=== PATIENT | female | born 1980 ===

== ENCOUNTER 2022-02-01 05:13 | Inpatient (IN) | payer BC, MEDICARE, OTHER ==
--- OUTSIDE RECORDS SUMMARY | 2022-02-01 05:17 | XMS REPORT | Continuity of Care Document ---
:1980 Author Organization [facility] t Address [address] [place] [address] Care Team Providers Name Role Phone Radiology Attending Clinician Unavailable RADIOLOGY Attending Clinician Unavailable Vincent Tse Attending Clinician [phone] Clark Johnson MD Attending Clinician Brian JOHNSON Attending Clinician Unavailable G_Jose Alejandro Attending Clinician Unavailable Maritza Admitting Clinician Unavailable Payers Payer Name Policy Type Policy Number Effective Date Expiration Date S ource ADMINISTRATIVE [id number] 2021 [employer] 00:00:00 ADMINISTRATIVE [id number] CONCEPTS Problems Condition Condition Condition Status Onset Resolution Last Treating Co mments Source Name Details Category Date Date Treatment Clinician Date No known No known Disease Unive rs active active ity of problems problems [facility] Allergies, Adverse Reactions, Alerts Allergy Allergy Status Severity Reaction(s) Onset Inactive Treating Comm ents Source Name Type Date Date Clinician NO KNOWN Drug Active Univers ALLERGIE Class ity of S [facility] Social History Social Habit Start Date Stop Date Quantity Comments Source Exposure to Not sure [facility] SARS-CoV-2 (event) Medica l Branch Sex Assigned At [birth year] [facility] 00:00:00 00:00:00 [facility] Smoking Status Start Date Stop Date Source Never Smoker [facility] Unknown if ever smoked [facility] Medications Ordered Filled Start Stop Current Ordering Indication Dosage Frequency Signature Comments Components Source Medication Medication Date Date Medication? Clinician (SIG) Name Name [facility] 2022020- No 40meq 40 mEq, Univers (KLOR-CON 03-15 Oral, ity of M20) tablet 10:45: 09:48 [place] 1 [place]Eq 00 :00 dose, [facility] 03/15/21 at [place] 0545, Routine ondansetron 2020- No 4mg 4 mg, Slow Univers (ZOFRAN 03-15 IV Push, ity of (PF)) 10:00: 09:01 ONCE, 1 [place] injection 4 00 :00 dose, [facility] mg 03/15/21 at [place] 0500, PHIL FENTanyl PF 2020- No 50ug 50 mcg, Un [place] (SUBLIMAZE 03-15 Slow IV ity o f (PF)) 10:00: 09:01 Push, [place] injection 00 :00 ONCE, 1 Medical 50 mcg dose, [facility] 03/15/21 at 0500, Routine maalox:diph No 15mL 15 mL, Uni vers enhydrAMINE 03-15 Oral, ity of :lidocaine 09:30: 08:23 ONCE, 1 [place] as 2 % viscous 00 :00 dose, [facility] 1:1:1 03/15/21 at [place] (FIRST-MOUT 0430, [facility]) Routine oral suspension 15 mL dicyclomine Yes [id number] 20mg Take 1 Univers 20 mg -06 tablet by ity of tablet 00:00: mouth [place] 00 every 6 Medical (six) Branch hours as needed for Abdominal pain. ondansetron Yes [id number] 4mg Take 1 Univers (ZOFRAN) 4 -06 tablet by ity of mg tablet 00:00: mouth [place] 00 every 8 Medical (eight) Branch hours as needed for Nausea and Vomiting (N/V). pantoprazol 0 Yes [id number] 40mg Take 1 Univers e 6-06 tablet by ity of (PROTONIX) 00:00: mouth [place] 40 mg EC 00 daily. Medical tablet [place] dicyclomine Yes [id number] 20mg Take 1 Univers 20 mg 6-06 tablet by ity of tablet 00:00: mouth [place] 00 every 6 Medical (six) Branch hours as needed for Abdominal pain. ondansetron Yes [id number] 4mg Take 1 Univers (ZOFRAN) 4 6-06 tablet by ity of mg tablet 00:00: mouth [place] 00 every 8 Medical (eight) Branch hours as needed for Nausea and Vomiting (N/V). pantoprazol Yes [id number] 40mg Take 1 Univers e 6-06 tablet by ity of (PROTONIX) 00:00: mouth [place] 40 mg EC 00 daily. Medical tablet Branch Emergen-C Emergen-C No Emergen-C [facility] Multi Multi No Multi [place] Vitamin Vitamin [facility] Vital Signs Vital Name Observation Time Observation Value Comments Source Systolic blood 2021-03-15 09:00:00 114 mm[Hg] Univer sity of [facility] Diastolic blood 2021-03-15 09:00:00 87 mm[Hg] [facility] Heart rate 2021-03-15 09:00:00 70 /min [facility] Respiratory rate 2021-03-15 09:00:00 18 /min [facility] saturation in 2021-03-15 09:00:00 98 /min University of Arterial blood by [place] [employer] [employer] Pulse oximetry Branch Body height 2021-03-15 08:17:00 157.5 cm [facility] Body weight 2021-03-15 08:17:00 79.379 kg [facility] BMI 2021-03-15 08:17:00 32.01 kg/m2 [facility] Systolic blood 2021-03-15 09:00:00 114 mm[Hg] Univer sity of [facility] Diastolic blood 2021-03-15 09:00:00 87 mm[Hg] Unive rsity of [facility] Heart rate 2021-03-15 09:00:00 70 /min [facility] Respiratory rate 2021-03-15 09:00:00 18 /min [facility] Oxygen saturation in 2021-03-15 09:00:00 98 /min University of Arterial blood by [place] [employer] [place] Pulse oximetry Branch Body height 2021-03-15 08:17:00 157.5 cm [facility] Body weight 2021-03-15 08:17:00 79.379 kg [facility] BMI 2021-03-15 08:17:00 32.01 kg/m2 [facility] BP Diastolic 2020-07-18 00:00:00 91 mm[Hg] [facility] BP Systolic 2020-07-18 00:00:00 128 mm[Hg] [facility] Body Weight 2020-07-18 00:00:00 180 [facility]lb_av[facility] Procedures Procedure Date / Time Performed Performing Clinician Sour e US ABDOMEN LIMITED 2021-05-04 20:03:12 Requisition, [facility] LIPASE 2021-03-15 08:33:00 Clark Johnson [facility] COMP. METABOLIC PANEL 2021-03-15 08:33:00 Clark Johnson [facility] ([id number]) [facility] CBC WITH DIFF 2021-03-15 08:33:00 Clark Johnson [facility] URINALYSIS 2021-03-15 08:33:00 Clark Johnson [facility] POCT TEST 2021-03-15 08:20:00 Clark Johnson [facility] CONSENT/REFUSAL FOR 2021-03-15 08:05:27 Doctor Unassigned, No Un [facility] DIAGNOSIS AND Name [facility] Branch TREATMENT MAMMO, screening, 2020-07-18 00:00:00 [facility] Operative Procedure on [facility] Plan of Care Planned Activity Planned Date Details Comments Source Diagnostic Test 2020-07-18 CBC w/ auto diff [facility] Pending 00:00:00 [code = CBC w/ Group auto diff] Diagnostic Test 2020-07-18 CMP, serum or [facility] Pending 00:00:00 plasma [code = Group CMP, serum or plasma] Diagnostic Test 2020-07-18 lipid panel, serum [facility] Pending 00:00:00 [code = lipid Group panel, serum] Diagnostic Test 2020-07-18 HBsAg (hepatitis B [facility] Pending 00:00:00 surface Ag), serum Group [code = HBsAg (hepatitis B surface Ag), serum] Diagnostic Test 2020-07-18 HIV (1+2) Ab [facility] Pending 00:00:00 screen, serum Group [code = HIV (1+2) Ab screen, serum] Diagnostic Test 2020-07-18 RPR (rapid plasma [facility] Pending 00:00:00 reagin), serum Group [code = RPR (rapid plasma reagin), serum] Diagnostic Test 2020-07-18 TSH + free T4, [facility] Pending 00:00:00 serum [code = TSH Group + free T4, serum] Diagnostic Test 2020-07-18 pap, LB + HPV [facility] Pending 00:00:00 [code = pap, LB + Group HPV] Encounters Start End Encounter Admission Attending Care Care Encounter Source Date/Time Date/Time Type Type Clinicians Facility Department ID 2021-08-10 Emergency [facility] [id number] [facility] 11:31:10 ity [facility] 2021-05-04 2021-05-04 Hospital Radiology [facility] [id number] 14:15:00 23:59:00 Encounter [place] [id number] [place] [id number] [place] [id number] [facility] 2021-05-04 2021-05-04 Hospital Radiology [facility] [id number] [facility] 14:15:00 23:59:00 Encounter [place] [id number] 4.2.7.2.686 [facility] [id number] [address] 2021-05-04 2021-05-04 Outpatient R RADIOLOGY [facility] [id number] Univers [facility]-04[facility] 2021-04-[address] Tse CHTAYLOROCS [id number] 13:00:00 13:00:00 Vincent [id number] 2021-03-15 2021-03-15 Emergency [facility] [id number] 03:08:00 04:52:00 [facility] [place] [id number] [place] 4.2.7.2.686 [place] [id number] [facility] 2021-03-15 2021-03-15 Emergency [facility] [id number] [facility] 03:08:00 04:52:00 [facility] [id number] ity [facility] 4.2.7.2.686 [facility] [id number] [place] [address] Branch 2021-03-15 2021-03-15 Emergency X [facility] ERT [id number] Univers 03:08:00 03:08:00 [facility] 2020-08-27 2020-08-27 Outpatient G_Pappas MMG MM [id number] [place] 02:27:00 02:27:00 1118 [facility] Group 2020-07-31 2020-07-31 Outpatient G_Pappas MMG MM [id number] [facility] 04:58:00 04:58:00 1022 Medical Group 2020-07-23 2020-07-23 Outpatient G_Pappas MMG MMG [id number] [place] 10:41:00 10:41:00 1014 Medical Group 2020-07-20 2020-07-20 Outpatient G_Pappas MMG MMG [id number] [place] 12:17:00 12:17:00 1011 Medical Group 2020-07-18 2020-07-18 Outpatient G_Pappas MMG MMG [id number] [place] 10:02:00 10:02:00 1009 Medical Group 2020-07-18 2020-07-18 Maria Ines [facility] [place] - [id number] M atagor 00:00:00 00:00:00 Devang Magana, Medical Medica daniele MCDONALD: [address] [facility] [address], [place] [address] , Ph. [phone] 2020-07-16 2020-07-16 Outpatient G_Pappas MMG MMG [id number] [place] 10:37:00 10:37:00 1007 Medical Group 2020-05-20 2020-05-20 Outpatient G_Pappas MMG MMG [id number] [place] 05:01:00 05:01:00 0811 Medical Group Results Test Description Test Time Test Comments Results Result [facility] e Comments US ABDOMEN 2021-04-2 Cholelithiasis. No Unive rsity of LIMITED 6 acute cholecystitis. [facility] s Medical 20:38:45 Beatrice Barakat Branch MD., have reviewed this study and agree with the abovereport.RIGHT UPPER QUADRANT ULTRASOUND HISTORY: abdominal pain Faxed order COMPARISON: None. FINDINGS: LIVER: Normal in size (14.2 cm). Normal echo-texture. No focal hepaticlesion. ?Normal hepatopetal ?flow within the main portal vein. GALLBLADDER: Cholelithiasis. No pericholecystic fluid or gallbladderdistentio n. No sonographic Carrington's sign. The common bile duct measures 3mm. PANCREAS: The visualized portions of pancreatic head, neck, and body appearunremarkable. RIGHT KIDNEY: The visualized portion of the right kidney is unremarkable. [facility], Radiant Results Inft User - 05/04/2021 3:39 PM CDT RIGHT UPPER QUADRANT ULTRASOUND HISTORY: abdominal pain Faxed orderCOMPARISON: None. FINDINGS: LIVER: Normal in size (14.2 cm). Normal echo-texture. No focal hepaticlesion. Normal hepatopetal flow within the main portal vein. GALLBLADDER: Cholelithiasis. No pericholecystic fluid or gallbladderdistentio n. No sonographic Carrington's sign. The common bile duct measures 3mm.PANCREAS: The visualized portions of pancreatic head, neck, and body appearunremarkable.R IGHT KIDNEY: The visualized portion of the right kidney is unremarkable.IMPRESS ION Cholelithiasis. No acute cholecystitis. Beatrice Barakat MD., have reviewed this study and agree with the abovereport. Complete Metabolic Panel 2021-03-15 09:17:48 Test Item Value Reference Range Interpretation Comme nts NA (test code = 3633519346) 140 mmol/L 135-145 K (test code = 9062854717) 3.2 mmol/L 3.5-5.0 L CL (test code = 3768233331) 107 mmol/L 98-108 CO2 TOTAL (test code = 5080033491) 24 mmol/L 23-31 AGAP (test code = 4979197966) 2-16 BUN (test code = 1540007952) 12 mg/dL 7-23 GLUCOSE (test code = 1631649826) 126 mg/dL 70-110 H CREATININE (test code = 0.64 mg/dL 0.50-1.04 3193737306) TOTAL BILI (test code = 0.3 mg/dL 0.1-1.4 8237339162) CALCIUM (test code = 3347610882) 9.1 mg/dL 8.6-10.6 T PROTEIN (test code = 5194101239) 7.4 g/dL 6.3-8.2 ALBUMIN (test code = 8448216992) 4.1 g/dL 3.5-5.0 ALK PHOS (test code = 7477016396) 58 U/L 34-122 ALTv (test code = 1742-6) 20 U/L 5-35 AST(SGOT) (test code = 3544947139) 82 U/L 13-40 H eGFR (test code = 1185222968) mL/min/1.73m2 ALICIA (test code = ALICIA) Association of Glomerular Filtration Rate (GFR) and Staging of Kidney Disease* + +-------- + ------+| GFR (mL/min/1.73 m2) ?| With Kidney Damage ?| ?Without Kidney Damage+ +-- + +| ?>90 ?| ?Stage one ?| ? Normal ?+ +------- + -------+| ?60-89 ?| ?Stage two ?| ? Decreased GFR ? + +-------- + ------+| ?30-59 ?| ?Stage three ?| ? Stage three ? + +-------- + ------+| ?15-29 ?| ?Stage four ? | ? Stage four ?+ +------- + -------+| ?<15 (or dialysis) ? ?| ?Stage five ? | ? Stage five ?+ +------- + -------+ *Each stage assumes the associated GFR level has been in effect for at least three months. ?Stages 1 to 5, with or without kidney disease, indicate chronic kidney disease. Notes: Determination of stages one and two (with eGFR >59mL/min/1.73 m2) requires estimation of kidney damage for at least three months as defined by structural or functional abnormalities of the kidney, manifested by either:Pathological abnormalities or Markers of kidney damage (including abnormalities in the composition of the blood or urine or abnormalities in imaging tests). Lab Interpretation (test code = Abnormal 76479-2) [facility] [id number] 09:17:27 Test Item Value Reference Range Interpretation Comments LIPASE (test code = 2063524717) 83 U/L 0-220 Lab Interpretation (test code = Normal 46136-8) [facility]2021-[facility]-06 08:56:33 Test Item Value Reference Range Interpretation Comments APPEARANCE (test code = Clear Clear 5682771884) COLOR (test code = Yellow Yellow 0895155218) PH (test code = 4.8-8.0 2452344280) SP GRAVITY (test code = 1.003-1.030 8796587861) GLU U QUAL (test code = Normal Normal 9427452844) BLOOD (test code = Negative Negative 1112496420) KETONES (test code = Negative Negative 4538606590) PROTEIN (test code = Negative Negative 2887-8) UROBILIN (test code = Normal Normal 5876785555) BILIRUBIN (test code = Negative Negative 8001483245) NITRITE (test code = Negative Negative 3334097649) LEUK MARGIE (test code = Negative Negative 4030603429) RBC/HPF (test code = See_Comment [Autom ated message] 7133318908) The system [employer] generated this result transmitted ref erence range: 0 - 3 HP F. The reference range was not used to int erpret this result as normal/abnormal . WBC/HPF (test code = See_Comment [Autom ated message] 9607656106) The system [employer] generated this result transmitted ref erence range: 0 - 5 HP F. The reference range was not used to int erpret this result as normal/abnormal . BACTERIA (test code = Few Negative A 1324539760) MUCOUS (test code = Slight Negative LPF A 4724132708) SQ EPITH (test code = HPF 9418243599) Lab Interpretation (test Abnormal code = 69621-0) [facility] with [id number] 08:45:08 Test Item Value Reference Range Interpretation Comments WBC (test code = See_Comment [Automated 6690-2) message] The sy stem which generated this result transmitted reference range : 4.30 - 11.10 10*3/?L. The reference range was not used to interpret this result as normal/abnormal . RBC (test code = See_Comment [Automated 789-8) message] The sy stem which generated this result transmitted reference range : 3.93 - 5.25 10*6/?L. The reference range was not used to interpret this result as normal/abnormal . HGB (test code = 12.1 g/dL 11.6-15.0 718-7) HCT (test code = 38.3 % 35.7-45.2 4544-3) MCV (test code = 88.2 fL 80.6-95.5 787-2) MCH (test code = 27.9 pg 25.9-32.8 785-6) MCHC (test code = 31.6 g/dL 31.6-35.1 786-4) RDW-SD (test code = 39.8 fL 39.0-49.9 67191-6) RDW-CV (test code = 12.3 % 12.0-15.5 788-0) PLT (test code = See_Comment [Automated 777-3) message] The sy stem which generated this result transmitted reference range : 166 - 358 10*3/ ?L. The reference r letitia was not used to interpret this result as normal/abnormal . MPV (test code = 10.3 fL 9.5-12.9 17191-0) NRBC/100 WBC (test See_Comment [Automat ed code = 3431182324) message] The system which generated this result transmitted reference range : 0.0 - 10.0 /100 WBCs. The refer ence range was not u sed to interpret th is result as normal/abnormal . NRBC x10^3 (test code <0.01 See_Comment [Auto mated = 2716755435) message] The s ystem which generated this result transmitted reference range : 10*3/?L. The reference range was not used to interpret this result as normal/abnormal . GRAN MAT (NEUT) % 75.8 % (test code = 770-8) IMM GRAN % (test code 0.40 % = 8066035802) LYMPH % (test code = 17.8 % 736-9) MONO % (test code = 5.3 % 5905-5) EOS % (test code = 0.4 % 713-8) BASO % (test code = 0.3 % 706-2) GRAN MAT x10^3(ANC) 7.55 10*3/uL 1.88-7.09 H (test code = 7135502689) IMM GRAN x10^3 (test 0.04 10*3/uL 0.00-0.06 code = 3850622806) LYMPH x10^3 (test code 1.77 10*3/uL 1.32-3.29 = 731-0) MONO x10^3 (test code 0.53 10*3/uL 0.33-0.92 = 742-7) EOS x10^3 (test code = 0.04 10*3/uL 0.03-0.39 711-2) BASO x10^3 (test code 0.03 10*3/uL 0.01-0.07 = 704-7) Lab Interpretation Abnormal (test code = 66077-8) [facility] [id number] 08:20:00 Test Item Value Reference Range Interpretation Comments POCT PREG (test code = 1605) negative On board controls acceptable with present C Line (test code = 3574) POCT PREG LOT # (test code = 3575) [id number] POCT PREG TEST DATE (test 09/08/2022 code = 3576) Lab Interpretation (test code = Normal 37600-7) [facility]"
[2022-02-01 06:22] LABS: Absolute Lymphocytes (CBC) 1.1 K/uL (0.7-4.9); Lymphocytes % 21.5 % (15.3-44.8); MPV 8.9 fL (7.6-11.3); RBC Red Blood Cell Count 4.37 M/uL (3.86-4.86)
[2022-02-01 06:40] LABS: Albumin 3.6 g/dL (3.4-5.0); Bilirubin Total 1.5 mg/dL (0.2-1.0); Potassium 3.6 mmol/L (3.5-5.1); Protein, Total 7.7 g/dL (6.4-8.2)
[2022-02-01] MEDS ORDERED: ONDANSETRON 4 MG/2 ML VIAL ONE (07:18)
[2022-02-01] MEDS ORDERED: MORPHINE 4 MG/ML SYR ONE (07:18)
[2022-02-01] MEDS ORDERED: NA CHLORIDE 0.9% 1,000 ML ONE (07:18)
[2022-02-01] MEDS ORDERED: FAMOTIDINE 20 MG/2 ML VIAL IV ONE (07:18)
--- NOTE | 2022-02-01 07:42 | RAD REPORT ---
EXAM DESCRIPTION: CT - Abdomen Pelvis W Contrast - 02/01/2022 7:32 am CLINICAL HISTORY: Epigastric pain COMPARISON: Abdomen Exam Limited dated 02/01/2022 TECHNIQUE: Biphasic, helical CT imaging of the abdomen and pelvis was performed following 100 ml non -ionic IV contrast. No oral contrast administered. All CT scans are performed using dose optimization technique as appropriate and may include automated exposure control or mA/KV adjustment according to patient size. FINDINGS: No suspicious findings in the lung bases. The liver, spleen, and pancreas show no suspicious focal findings. Liver attenuation is borderline to mildly fatty infiltrated. Gallbladder is not dilated. [place] are not clearly thickened or edematous b y CT criteria. Same-day ultrasound showed presence of gallstones. There is mild prominence of the int rahepatic and extrahepatic biliary tree. Diameter is upper normal to slightly enlarged at 8-9 mm. Att enuation of the common bile duct lumen suggests the presence of duct stones. CT sensitivity is limite d. Symmetric renal function is seen with no hydronephrosis or suspicious renal mass. No pyelonephritis o r acute parenchymal process. No bladder abnormalities. No adrenal abnormalities. No dilated bowel loops or bowel wall thickening. No appendicitis. There is a mild congestion to the f at round the central mesenteric vasculature. This is a nonspecific finding. A few small sub centimete r mesenteric lymph nodes present. No free air or pneumatosis. Trace amount of free fluid in the cul d e sac is physiologic in quantity. Uterus and ovaries show no suspicious findings. There does appear t o be an involuting left ovarian cyst approximately 2 cm in size. No hernia, mass or bulky lymphadeno trev. No suspicious bony findings. IMPRESSION: Biliary tree appears mildly prominent and there are finding suggestive of choledocholith iasis. Gallbladder is not dilated. [place] do not appear thickened or edematous on CT criteria. Separately rep orted ultrasound identified gallstones. Nonspecific congestion of the central mesenteric fat with a few small nonspecific mesenteric lymph no [place]. Concurrent enteritis is possible. Involuting left ovarian cyst. 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
--- NOTE | 2022-02-01 07:44 | RAD REPORT ---
EXAM DESCRIPTION: US - Abdomen Exam Limited - 02/01/2022 6:23 am CLINICAL HISTORY: RUQ pain COMPARISON: No remote comparison FINDINGS: Multiple mobile subcentimeter gallstones are present within the lumen. Most are clustered in the fundus. No wall thickening or pericholecystic fluid seen. There is no wall thickening or peric holecystic fluid. No duct stone is identifiable. Diameter of the common bile duct is 7-8 mm. Portions of the extrahepat ic biliary tree are obscured by bowel. IMPRESSION: Multi stone cholelithiasis without additional sonographic findings for acute cholecystit is. Extrahepatic biliary tree is upper normal to slightly enlarged at 7-8 mm. Duct is partially obscured by a bowel. No duct stones could be confirmed.
--- NOTE | 2022-02-01 08:15 | ER ---
Nurse's Notes [facility] Name: Fany Duron Age: 41 yrs Sex: Female : 1980 Arrival Date: 02/01/2022 Time: 05:19 Bed 8 Private MD: Diagnosis: Other cholelithiasis with obstruction;Choledocholithiasis Presentation: 02/01 05:27 Chief complaint: Patient states: was seen Tuesday at [facility] and was confirmed to have lg3 gallstones and was told to follow up with Dr. Pereira for surgery. pain is increasing and becoming unbearable at this point. Coronavirus screen: Client denies travel out of the [place] in the last 14 days. At this time, the client does not indicate any symptoms associated with coronavirus-19. Ebola Screen: No symptoms or risks identified at this time. Initial Sepsis Screen: Does the patient meet any 2 criteria? No. Patient's initial sepsis screen is negative. Does the patient have a suspected source of infection? No. Patient's initial sepsis screen is negative. Risk Assessment: Do you want to hurt yourself or someone else? Patient reports no desire to harm self or others. Onset of symptoms was January 30, 2022. 05:27 Method Of Arrival: Ambulatory lg3 05:27 Acuity: TOBIAS 3 lg3 Triage Assessment: 05:31 General: Appears in no apparent distress. uncomfortable, Behavior is calm, cooperative. lg3 Pain: Complains of pain in epigastric area Pain radiates to back. EENT: No deficits noted. No signs and/or symptoms were reported regarding the EENT system. Neuro: No deficits noted. Level of Consciousness is awake, alert, obeys commands, Oriented to person, place, time, situation. Cardiovascular: No deficits noted. Capillary refill < 3 seconds Clubbing of nail beds is absent JVD is absent Patient's skin is warm and dry. Respiratory: No deficits noted. Airway is patent Trachea midline Respiratory effort is even, unlabored, Respiratory pattern is regular, symmetrical. GI: Reports upper abdominal pain, epigastric pain, indigestion, intolerance of fluids, intolerance of food, nausea. : No deficits noted. No signs and/or symptoms were reported regarding the genitourinary system. Derm: No deficits noted. No signs and/or symptoms reported regarding the dermatologic system. Skin is intact, is healthy with good turgor, Skin is dry, Skin is pink, warm \\T\\ dry. Musculoskeletal: No deficits noted. No signs and/or symptoms reported regarding the musculoskeletal system. Circulation, motion, and sensation intact. Range of motion: intact in all extremities. 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 - Social history:: Smoking status: Patient/guardian denies using tobacco, the patient reports quitting approximately 2 years ago, Patient/guardian denies using alcohol. - Family history:: not pertinent. - Hospitalizations: : No recent hospitalization is reported. Screenin:01 Abuse screen: Denies threats or abuse. Nutritional screening: No deficits noted. ll3 Tuberculosis screening: No symptoms or risk factors identified. 07:30 Fall Risk None identified. jg9 Assessment: 05:45 General: Appears uncomfortable, Behavior is calm, cooperative. Pain: Complains of pain ll3 in back and abdomen and epigastric area Pain radiates to back Pain currently is 9 out of 10 on a pain scale. Pain began 2-3 days ago. Is continuous. Neuro: Level of Consciousness is awake, alert, obeys commands, Oriented to person, place, time, situation. Cardiovascular: Patient's skin is warm and dry. Respiratory: Respiratory effort is even, unlabored, Respiratory pattern is regular, symmetrical. GI: Abdomen is round non-distended, Bowel sounds present X 4 quads. Abd is soft and non tender X 4 quads. Reports upper abdominal pain. Derm: Skin is pink, warm \\T\\ dry. 07:15 Reassessment: No changes from previously documented assessment. Patient and/or family jg9 updated on plan of care and expected duration. Pain level reassessed. Patient is alert, oriented x 3, equal unlabored respirations, skin warm/dry/pink. Patient states symptoms have not improved. 08:56 Reassessment: Patient appears in no apparent distress at this time. Patient is alert, jg9 oriented x 3, equal unlabored respirations, skin warm/dry/pink. updated on plan of care. Vital Signs: 05:27 BP 125 / 97; Pulse 63; Resp 17 S; Temp 97.6(O); Pulse Ox 100% on R/A; Weight 81.65 kg lg3 (R); Height 5 ft. 2 in. (157.48 cm) (R); Pain 8/10; 07:17 BP 123 / 93; Pulse 71; Resp 17 S; Pulse Ox 95% on R/A; Pain 8/10; jg9 08:30 BP 120 / 94; Pulse 70; Resp 17 S; Pulse Ox 97% on R/A; jg9 09:30 BP 105 / 80; Pulse 68; Resp 17; Pulse Ox 95% on R/A; jg9 11:00 BP 96 / 70; Pulse 58; Resp 14 S; Pulse Ox 97% on R/A; jg9 12:00 BP 106 / 69; Pulse 51; Resp 14 S; Pulse Ox 97% on R/A; jg9 12:30 BP 112 / 73; Pulse 53; Resp 14 S; Pulse Ox 95% on R/A; Pain 8/10; jg9 05:27 Body Mass Index 32.92 (81.65 kg, 157.48 cm) lg3 ED Course: 05:19 Patient arrived in ED. ag3 05:21 Farhat Camarillo MD is Attending Physician. kdr 05:31 Triage completed. lg3 05:31 Arm band placed on right wrist. lg3 06:25 US Abdomen Limited In Process Unspecified. EDMS 06:41 Notified ED physician of a critical lab result(s). AST 639; ALT 342. lp1 07:01 Patient has correct armband on for positive identification. Bed in low position. Call ll3 light in reach. Side rails up X 1. 07:10 Awa Churchill, SARTHAK is Primary Nurse. lp1 07:10 Inserted saline lock: 22 gauge in left antecubital area, using aseptic technique. lp1 07:10 Accessed peripheral vein via ultrasound, utilizing dynamic ultrasound technique using lp1 ,sterile technique, per hospital protocol. Clean \\T\\ dry. Good blood return. Flushes easily. 22g IV to L AC. 07:14 Attending Physician role handed off by Farhat Camarillo MD rn 07:14 Kevyn Vázquez MD is Attending Physician. rn 07:15 No apparent distress. Resting quietly. ED physician to see patient. jg9 07:28 Katarina Blount, RN is Primary Nurse. jg9 07:34 CT Abd/Pelvis - IV Contrast Only In Process Unspecified. EDMS 08:13 Jennifer Joshi MD is Hospitalizing Provider. rn 08:52 COVID-19 SARS RT PCR (Document "Date of Onset" if Symptomatic) Sent. jg9 08:58 No apparent distress. Resting quietly. Pt visited by significant other. jg9 12:56 Patient requests pain medication. Dr. Joshi called by this nurse to get orders for jg9 pain medication. Administered Medications: 07:25 Drug: NS 0.9% 1000 ml Route: IV; Rate: 1 bolus; Site: left antecubital; jg9 08:26 Follow up: IV Status: Completed infusion; IV Intake: 1000ml jg9 07:26 Drug: Zofran (Ondansetron) 4 mg Route: IVP; Site: left antecubital; jg9 07:57 Follow up: Response: No adverse reaction; Nausea is decreased jg9 07:27 Drug: morphine 4 mg Route: IVP; Site: left antecubital; jg9 07:57 Follow up: Response: No adverse reaction; Pain is decreased jg9 07:27 Drug: Pepcid (famotidine) 20 mg Route: IVP; Site: left antecubital; jg9 07:57 Follow up: Response: No adverse reaction jg9 08:47 Drug: Zosyn (piperacillin-tazobactam) 3.375 grams Route: IVPB; Infused Over: 60 mins; jg9 Site: left antecubital; 09:45 Follow up: IV Status: Completed infusion; IV Intake: 100ml jg9 Intake: 08:26 IV: 1000ml; Total: 1000ml. jg9 09:45 IV: 100ml; Total: 1100ml. jg9 Outcome: 08:14 Decision to Hospitalize by Provider. rn 17:00 Patient left the ED. mh5 Signatures: Dispatcher [employer] EDSD RitFarhat nicole MD MD kdr Nieto, Roman, MD MD rn Pena, Laura, RN RN lp1 Cleo Pereira 5 Pa, Darcy 3 Shahla Edge RN RN lg3 Pepe Gomez RN RN ll3 Katarina Blount RN RN jg9 Corrections: (The following items were deleted from the chart) 12:21 05:31 Social history: Smoking status: Patient denies any tobacco usage or history of. jg9 Patient/guardian denies using alcohol, lg3
--- NOTE | 2022-02-01 08:15 | EDPHYS ---
Physician Documentation [facility] Name: Fany Duron Age: 41 yrs Sex: Female : 1980 Arrival Date: 02/01/2022 Time: 05:19 Bed 8 Private MD: ED Physician Kevyn Vázquez HPI: 02/01 07:41 This 41 yrs old Female presents to ER via Ambulatory with complaints of Abdominal Pain. rn 07:41 Pt reports recent visit to [place], referred here if symptoms dont improve, no fever, no rn vomiting, + persistent pain in RUQ. . Onset: The symptoms/episode began/occurred "months ago". Severity of symptoms: At their worst the symptoms were moderate in the emergency department the symptoms are unchanged. The patient has experienced similar episodes in the past. The patient has been recently seen by a physician:. 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 - Social history:: Smoking status: Patient/guardian denies using tobacco, the patient reports quitting approximately 2 years ago, Patient/guardian denies using alcohol. - Family history:: not pertinent. - Hospitalizations: : No recent hospitalization is reported. ROS: 07:41 Constitutional: Negative for fever, chills, and weight loss, Eyes: Negative for injury, rn pain, redness, and discharge, Neck: Negative for injury, pain, and swelling, Cardiovascular: Negative for chest pain, palpitations, and edema, Respiratory: Negative for shortness of breath, cough, wheezing, and pleuritic chest pain, Abdomen/GI: + RUQ abd pain Back: Negative for injury and pain, : Negative for injury, bleeding, discharge, and swelling, MS/Extremity: Negative for injury and deformity, Skin: Negative for injury, rash, and discoloration, Neuro: Negative for headache, weakness, numbness, tingling, and seizure. Exam: 07:41 Constitutional: This is a well developed, well nourished patient who is awake, alert, rn and in no acute distress. Head/Face: Normocephalic, atraumatic. Eyes: Periorbital areas with no swelling, redness, or edema. Cardiovascular: Regular rate and rhythm. No pulse deficits. Respiratory: No increased work of breathing, no retractions or nasal flaring. Abdomen/GI: + RUQ tenderness, neg ogden, + guarding Skin: Warm, dry MS/ Extremity: Pulses equal, no cyanosis. Neuro: Awake and alert, GCS 15 Vital Signs: 05:27 BP 125 / 97; Pulse 63; Resp 17 S; Temp 97.6(O); Pulse Ox 100% on R/A; Weight 81.65 kg lg3 (R); Height 5 ft. 2 in. (157.48 cm) (R); Pain 8/10; 07:17 BP 123 / 93; Pulse 71; Resp 17 S; Pulse Ox 95% on R/A; Pain 8/10; jg9 08:30 BP 120 / 94; Pulse 70; Resp 17 S; Pulse Ox 97% on R/A; jg9 09:30 BP 105 / 80; Pulse 68; Resp 17; Pulse Ox 95% on R/A; jg9 11:00 BP 96 / 70; Pulse 58; Resp 14 S; Pulse Ox 97% on R/A; jg9 12:00 BP 106 / 69; Pulse 51; Resp 14 S; Pulse Ox 97% on R/A; jg9 12:30 BP 112 / 73; Pulse 53; Resp 14 S; Pulse Ox 95% on R/A; Pain 8/10; jg9 05:27 Body Mass Index 32.92 (81.65 kg, 157.48 cm) lg3 MDM: 07:14 Patient medically screened. rn 08:12 Differential Diagnosis cholecystitis, choledocholithiasis, cholelithiasis. Data rn reviewed: vital signs, nurses notes, lab test result(s), radiologic studies, CT scan, and as a result, I will admit patient. Counseling: I had a detailed discussion with the patient and/or guardian regarding: the historical points, exam findings, and any diagnostic results supporting the discharge/admit diagnosis, lab results, radiology results, the need for further work-up and treatment in the hospital. Response to treatment: the patient's symptoms have mildly improved after treatment, and as a result, I will admit patient. Admission orders: after a detailed discussion of the patient's condition and case, the admit orders are written by me. ED course: Consulted with Dr. Pereira, will see patient, recommends admission to hospitalist service with MRCP and GI consult. . 08:36 ED course: Called Dr. Joshi, no answer, left message.. rn 02/01 05:22 Order name: CBC with Diff; Complete Time: 07:41 kdr 02/01 05:22 Order name: CMP; Complete Time: 07:41 kdr 02/01 05:22 Order name: Lipase; Complete Time: 07:41 kdr 02/01 08:44 Order name: SARS-COV-2 RT PCR (Document "Date of Onset" if Symptomatic) iw 02/01 08:45 Order name: COVID-19 SARS RT PCR (Document "Date of Onset" if Symptomatic) jd3 02/01 08:47 Order name: Urine Dipstick-Ancillary [facility] 02/01 05:51 Order name: CT Abd/Pelvis - IV Contrast Only; Complete Time: 07:45 kdr 02/01 05:51 Order name: US Abdomen Limited; Complete Time: 07:45 kdr 02/01 08:49 Order name: Urine --Ancillary (enter results) bd 02/01 13:03 Order name: CBC with Automated Diff [facility] 02/01 13:03 Order name: CBC with Automated Diff [facility] 02/01 13:03 Order name: Comprehensive Metabolic Panel [facility] 02/01 13:03 Order name: Comprehensive Metabolic Panel [facility] 02/01 05:22 Order name: IV Saline Lock; Complete Time: 07:10 [facility] 02/01 05:22 Order name: Labs collected and sent; Complete Time: 07:12 kdr 02/01 08:42 Order name: Urine Dipstick-Ancillary (obtain specimen); Complete Time: 08:47 rn 02/01 08:42 Order name: Urine Test (obtain specimen); Complete Time: 08:47 rn 02/01 13:03 Order name: CONS Physician Consult EDAZ 02/01 13:03 Order name: NPO EDAZ 02/01 13:05 Order name: CONS Physician Consult EDAZ Administered Medications: 07:25 Drug: NS 0.9% 1000 ml Route: IV; Rate: 1 bolus; Site: left antecubital; jg9 08:26 Follow up: IV Status: Completed infusion; IV Intake: 1000ml jg9 07:26 Drug: Zofran (Ondansetron) 4 mg Route: IVP; Site: left antecubital; jg9 07:57 Follow up: Response: No adverse reaction; Nausea is decreased jg9 07:27 Drug: morphine 4 mg Route: IVP; Site: left antecubital; jg9 07:57 Follow up: Response: No adverse reaction; Pain is decreased jg9 07:27 Drug: Pepcid (famotidine) 20 mg Route: IVP; Site: left antecubital; jg9 07:57 Follow up: Response: No adverse reaction jg9 08:47 Drug: Zosyn (piperacillin-tazobactam) 3.375 grams Route: IVPB; Infused Over: 60 mins; jg9 Site: left antecubital; 09:45 Follow up: IV Status: Completed infusion; IV Intake: 100ml jg9 Disposition Summary: 02/01/22 08:14 Hospitalization Ordered Hospitalization Status: Inpatient Admission rn Provider: Jennifer Joshi rn Condition: Stable rn Problem: an ongoing problem rn Symptoms: have improved rn Bed/Room Type: Standard rn Location: Telemetry/MedSurg (Inpatient)(02/01/22 15:23) bd Room Assignment: 403(02/01/22 15:23) bd Diagnosis - Other cholelithiasis with obstruction rn - Choledocholithiasis rn Forms: - Medication Reconciliation Form rn - SBAR form rn Signatures: Dispatcher [employer] EDNancy Mckeon bd Farhat Camarillo MD MD kdr Williams, Irene, RN RN iw Kevyn Vázquez MD MD rn Gibson, Lacie RN RN lg3 Katarina Blount RN RN jg9 Corrections: (The following items were deleted from the chart) 12:21 05:31 Social history: Smoking status: Patient denies any tobacco usage or history of. jg9 Patient/guardian denies using alcohol, lg3 13:14 08:14 Telemetry/MedSurg (Inpatient) rn iw 13:14 08:14 rn iw 15:23 13:14 [facility] ER HOLD iw bd 15:23 13:14 ERHOLD- iw bd
[2022-02-01] MEDS ORDERED: PIPERACIL/TAZO 3.375 GM VIAL IV ONE (08:33)
[2022-02-01] MEDS ORDERED: NA CHLORIDE 0.9% 100 ML IV ONE (08:34)
[2022-02-01 08:47] LABS: Urine Blood Trace-intact (Negative); Urine Glucose Negative (Negative); Urine Protein Negative (Negative)
[2022-02-01] MEDS ORDERED: ALBUTEROL 2.5 MG/3 ML NEB SOL NEB PRN (12:58)
[2022-02-01] MEDS: D5 0.9 NS 1,000 ML IV SCH (13:00)
[2022-02-01] MEDS ORDERED: HYDRALAZINE HCL 20 MG/ML VIAL IV PRN (13:01)
--- NOTE | 2022-02-01 13:07 | P.HP ---
Certification for Inpatient Patient admitted to: Observation With expected LOS: >2 Midnights Patient will require the following post-hospital care: None Practitioner: I am a practitioner with admitting privileges, knowledge of patient current condition, hospital course, and medical plan of care. Services: Services provided to patient in accordance with Admission requirements found in Title 42 Section 412.3 of the Code of Federal Regulations Patient History Date of Service: 02/01/22 Reason for admission: Abdominal pain History of Present Illness: 41-year-old -[place] female with no past medical history presented for sudden onset abdominal pain located in the epigastric area rated at 6 out of 10 radiating to the mid back. Pain onset 6 in the last 3 days associated with nausea and 2 episodes of vomiting. She denies any associated diarrhea fever or chills. On presentation in the ED due to persistent pain she was noted on abdominal ultrasound to have multiple gallstones. CT of the abdomen shows gallstones with mild intra and extrahepatic biliary prominence. There was no evidence of acute cholecystitis. She has been admitted for choledocholithiasis Allergies No Known Allergies Allergy (Verified 02/01/22 13:06) Home medications list reviewed: Yes (none) Home Medications: NK [No Home Meds] 02/01/22 - Past Medical/Surgical History Has patient received pneumonia vaccine in the past: No Diabetic: No Past Medical History: Reviewed- Non-Contributory -: Knee surgery - Social History Smoking Status: Never smoker Patient receptive to therapy: Yes Alcohol use: No CD- Drugs: No Caffeine use: No Place of Residence: Home Review of Systems 10-point ROS is otherwise unremarkable Physical Examination - Physical Exam General: Alert, In no apparent distress, Oriented x3 HEENT: Atraumatic, Normocephalic, PERRLA Neck: 2+ carotid pulse no bruit, JVD not distended Respiratory: Clear to auscultation bilaterally, Normal air movement Cardiovascular: No edema, Regular rate/rhythm, Normal S1 S2 Gastrointestinal: Normal bowel sounds, Soft and benign, Non-distended, Tenderness (epigastric) Musculoskeletal: No clubbing, No swelling Neurological: Normal gait, Normal speech, Normal strength at 5/5 x4 extr - Studies Laboratory Data (last 24 hrs) 02/01/22 05:52: Sodium 141, Potassium 3.6, BUN 8, Creatinine 0.82, Glucose 104, Total Bilirubin 1.5 H, AST 639 H*, ALT 342 H*, Alkaline Phosphatase 117, Lipase 125 02/01/22 05:52: WBC 5.3, Hgb 12.3, Hct 37.0, Plt Count 288 Assessment and Plan - Problems (Diagnosis) (1) Choledocholithiasis Current Visit: Yes Status: Acute Discharge Plan: Home - Advance Directives Does patient have a Living Will: No Does patient have a Durable POA for Healthcare: No - Code Status/Comfort Care Code Status Assessed: Yes Code Status: Full Code Physician Review: Patient Assessed, Agree with Above Assessment and Plan Physician Review Additional Text: CT scan of the abdomen IMPRESSION: Biliary tree appears mildly prominent and there are finding suggestive of choledocholithiasis. Gallbladder is not dilated. Norman do not appear thickened or edematous on CT criteria. Separately reported ultrasound identified gallstones. Nonspecific congestion of the central mesenteric fat with a few small nonspecific mesenteric lymph nodes. Concurrent enteritis is possible. Involuting left ovarian cyst. 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 Impression Acute choledocholithiasis Plan We will consult general surgery for possible cholecystectomy Will consult GI for possible ERCP after cholecystectomy IV pain medication with morphine as needed now We will start gentle IV fluid hydration Keep n.p.o. IV Zofran as tolerated needed Subcutaneous heparin for DVT prophylaxis Possible hospital stay for less than 48 hours Time Spent Managing Pts Care (In Minutes): 70
[2022-02-01] MEDS: MORPHINE 2 MG/ML SYR IV PRN ×2 (14:15→18:44)
[2022-02-01] MEDS ORDERED: PNEUMOCOCCAL VACCINE 0.5 ML IMVAC ONE (15:00)
[2022-02-01 16:39] VITALS: BMI 32.9
--- NOTE | 2022-02-01 18:59 | CON ---
Date of Consultation: 02/01/2022 Diagnosis: Abdominal pain. History Of Present Illness: This is the case of a 41-year-old patient, initially came to [facility] co mplaining of abdominal pain in right upper quadrant, vomiting, nausea for at least 24 hours' duration . Apparently, the patient was transferred this morning to this institution and I was consulted for a possible gallbladder disease. She denies any recent traveling out of the country, denies any family member sick at home. She had this pain before, but at this time got worse to the point that it did not get relief. She denies any dysuria, hematuria, hematochezia, or melena. Allergies: NONE. Medications: None. Medical History: None. Surgical History: Right knee from torn ligament. Social History: She does not smoke. She does not drink alcohol. Family History: Noncontributory. Review of Systems: Nausea, history of vomiting, abdominal pain. See H and P. Physical Examination: General: The patient is awake, alert. HEENT: Pupils are equal and reactive. Anicteric. Neck: Supple. Chest: Clear. Abdomen: Soft and depressible. Epigastric right upper quadrant tenderness. Carrington sign positive. Extremities: Good capillary refill. Breasts: Deferred. Pelvic: Deferred. Rectal: Deferred. Laboratory Data: CAT scan of the abdomen and pelvis read by Dr. Servin shows biliary tree prominent and some densities there suggestive of choledocholithiasis. Ultrasound of the abdomen shows gallsto rebeac. Blood work shows WBC count of 5.3, hemoglobin of 12.3, potassium 3.6. AST 639, ALT 342, total bilirubin 1.5, alkaline phos is 117, lipase 125. Assessment: This is a 41-year-old patient, comes to us with acute cholecystitis, symptomatic choleli thiasis, possible choledocholithiasis seen already on imaging with LFTs elevated. I contacted Dr. Dennise hernandez for requesting an ERCP on this patient. The patient also was fully explained the need for all t he suggestion to her of performing a laparoscopic possible open cholecystectomy with benefits, altern atives, and risks including, but not limited to infection, bleeding, damage to adjacent structures, a nesthesia complication, choledocholithiasis, bile leak, pancreatitis, LA, and even . She also u nderstands this may not relieve any symptoms. She might need more one than surgical intervention. МАРИЯ/KANDY Voice ID: [id number] Report ID: [id number]
[2022-02-01] MEDS: FAMOTIDINE 20 MG/2 ML VIAL IV SCH (21:22)
[2022-02-02] MEDS: D5 0.9 NS 1,000 ML IV SCH ×3 (00:15→22:47)
[2022-02-02] MEDS: MORPHINE 2 MG/ML SYR IV PRN ×4 (00:19→20:04)
[2022-02-02] MEDS: ONDANSETRON 4 MG/2 ML VIAL IV PRN ×3 (00:20→20:04)
[2022-02-02 03:53] LABS: Absolute Lymphocytes (CBC) 1.8 K/uL (0.7-4.9); Hematocrit 33.8 % (36.0-45.0); Lymphocytes % 24.4 % (15.3-44.8); RBC Red Blood Cell Count 3.94 M/uL (3.86-4.86)
[2022-02-02 03:57] LABS: Protime INR 1.11
[2022-02-02 04:07] LABS: ALT/SGPT 212 U/L (12-78); AST/SGOT 181 U/L (15-37); Albumin 2.9 g/dL (3.4-5.0); Alkaline Phosphatase 95 U/L (45-117); BUN Blood Urea Nitrogen 5 mg/dL (7-18); Bicarbonate 24 mmol/L (21-32); Bilirubin Total 0.5 mg/dL (0.2-1.0); Glucose Level 103 mg/dL (74-106); Potassium 3.6 mmol/L (3.5-5.1); Protein, Total 6.5 g/dL (6.4-8.2); Sodium Level 141 mmol/L (136-145)
[2022-02-02] MEDS: FAMOTIDINE 20 MG/2 ML VIAL IV SCH ×2 (07:29→20:04)
[2022-02-02] MEDS ORDERED: ENOXAPARIN 40 MG/0.4 ML SQ SCH (09:00)
[2022-02-02] MEDS ORDERED: LIDOCAINE 1% MPF 30 ML VIAL ONE (11:14)
[2022-02-02] MEDS ORDERED: MIDAZOLAM HCL 2 MG/2 ML INJ ONE (11:14)
[2022-02-02] MEDS ORDERED: GLYCOPYRROLATE 0.2 MG/ML SYR ONE (11:14)
[2022-02-02] MEDS ORDERED: propofoL 200 MG/20 ML VIAL IV ONE (11:14)
[2022-02-02] MEDS ORDERED: FENTANYL CITR 100 MCG/2 ML ONE (11:14)
--- NOTE | 2022-02-02 11:15 | P.PN ---
Subjective Date of Service: 02/02/22 Chief Complaint: Abdominal pain Subjective: No new changes, No C/O voiced Physical Examination - Vital Signs Temperature: 97.9 F Blood Pressure: 114/76 Pulse: 67 Respirations: 18 Pulse Ox (%): 100 Assessment And Plan - Current Problems (Diagnosis) (1) Choledocholithiasis Current Visit: Yes Status: Acute Physician Review: Patient Assessed, Agree with Above Assessment and Plan Physician Review Additional Text: CT scan of the abdomen IMPRESSION: Biliary tree appears mildly prominent and there are finding suggestive of choledocholithiasis. Gallbladder is not dilated. Norman do not appear thickened or edematous on CT criteria. Separately reported ultrasound identified gallstones. Nonspecific congestion of the central mesenteric fat with a few small nonspecific mesenteric lymph nodes. Concurrent enteritis is possible. Involuting left ovarian cyst. 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 - Physical Exam General: Alert, In no apparent distress, Oriented x3 HEENT: Atraumatic, Normocephalic, PERRLA Neck: 2+ carotid pulse no bruit, JVD not distended Respiratory: Clear to auscultation bilaterally, Normal air movement Cardiovascular: No edema, Regular rate/rhythm, Normal S1 S2 Gastrointestinal: Normal bowel sounds, Soft and benign, Non-distended, Tenderness (epigastric) Musculoskeletal: No clubbing, No swelling Neurological: Normal gait, Normal speech, Normal strength at 5/5 x4 extr Impression Acute choledocholithiasis Plan -Pain control going well Follow-up plan for ERCP today General surgery discussed with for cholecystectomy in a.m. continue gentle IV fluid hydration Keep n.p.o. IV Zofran as tolerated needed Subcutaneous heparin for DVT prophylaxis Possible hospital stay for less than 48 hours 02/02/22 11:15 Time Spent Managing PTS Care (In Minutes): 30
[2022-02-02] MEDS ORDERED: Ringers Lactate 1,000 ML IV ONE (11:19)
[2022-02-02] MEDS ORDERED: GENTAMICIN SULF 80 MG/2ML INJ ONE (11:22)
[2022-02-02] MEDS ORDERED: GLUCAGON 1 MG/VIAL ONE (11:26)
[2022-02-02] MEDS ORDERED: GLUCAGON 1 MG/VIAL IV ONE (12:19)
--- NOTE | 2022-02-02 12:41 | ENDO RPT ---
[address], [address] ERCP PROCEDURE REPORT EXAM DATE: 02/02/2022 PATIENT NAME: Fany Duron MR #: [id number] BIRTHDATE: 1980 ATTENDING: Frankie Tyler Dr STATUS: inpatient - 7 DIRECTOR OF RETAIL OPERATIONS: Redd Fishman CST and Genny Day RN INDICATIONS: The patient is a 41 yr old Female here for an ERCP due to suspected stone, RUQ abdominal pain, abnormal imaging, and abnormal Liver Function Tests PROCEDURE PERFORMED: ERCP with sphincterotomy and ERCP with stent placement MEDICATIONS: Per Anesthesia. CONSENT: The patient understands the risks and benefits of the procedure and understands that these risks include, but are not limited to: sedation, allergic reaction, infection, perforation and/or bleeding. Alternative means of evaluation and treatment include, among others: physical exam, x-rays, and/or surgical intervention. The patient elects to proceed with this endoscopic procedure. DESCRIPTION OF PROCEDURE: During intra-op preparation period all mechanical medical equipment was checked for proper function. Hand hygiene and appropriate measures for infection prevention was taken. Procedure, possible complications, and alternatives including but not limited to the possibility of bleeding, perforation, tear, infection, sepsis, need for surgery, need for blood transfusion, and anesthesia related complications were explained to the patient. In addition, 5-30% incidence of acute pancreatitis as a result of ERCP were explained. After the risks, benefits and alternatives of the procedure were thoroughly explained, Informed was verified, confirmed and timeout was successfully executed by the treatment team. With the patient in left semi-prone position, medications were administered intravenously.The [id number] ([id number]) was passed from the mouth into the esophagus and further advanced from the esophagus into the stomach. From stomach scope was directed to the second portion of the duodenum. Major papilla was aligned with the duodenoscope. The scope position was confirmed fluoroscopically. Rest of the findings/therapeutics are given below. The scope was then completely withdrawn from the patient and the procedure completed. The pulse, BP, and O2 saturation were monitored and documented by the physician and the nursing staff throughout the entire procedure. The patient was cared for as planned according to standard protocol. The patient was then discharged to recovery in stable condition and with appropriate post procedure care. A 4 mm stone was found in the common bile duct. Sphincterotomy was performed with a regular 20 mm papillotome. A straight 7-5 plastic stent was placed (stone not removed with patient having tachycardia to 141 BPM). The pancreatic duct was filled to the tail and appeared to be normal. Care was taken not to overfill the ductal system. ADVERSE EVENT: None IMPRESSIONS: 1. 4 mm stone in the common bile duct, s/p sphincterotomy 7-5 plastic biliary stent placement (stone not removed with patient having tachycardia to 141 BPM) 2. The pancreatic duct was filled to the tail and appeared to be normal. Care was taken not to overfill the ductal system. RECOMMENDATIONS: 1. antibiotics 2. laparoscopic cholecystectomy as per surgery REPEAT EXAM: Return in 2 week(s) for ERCP. Frankie Tyelr Dr eSigned: Frankie Tyler Dr 02/02/2022 12:41 PM cc: CPT CODES: ICD9 CODES: PATIENT NAME: Fany Duron MR#: [id number]
[2022-02-02 13:02] VITALS: O2SAT 100
--- NOTE | 2022-02-02 14:00 | RAD REPORT ---
EXAM DESCRIPTION: RAD - Fluoroscopy ERCP - 02/02/2022 1:12 pm FINDINGS: There were 4 images submitted from fluoroscopic assisted years CP examination. Images show choledocholithiasis with placement of a stent. No suspicious or unexpected finding. 4:41 MIN FLUORO TIME
--- NOTE | 2022-02-02 15:36 | CON ---
Date of Consultation: 02/02/2022 Reason For Consultation: Abdominal pain with cholecystitis, cholelithiasis and possible choledocholi thiasis. History Of Present Illness: This is a 41-year-old female without significant past m edical history, presented with sudden onset right upper quadrant midepigastric pain, 6/10, radiating to mid back, pain associated with nausea and 2 episodes of vomiting. She presented to the emergency room. CT with ultrasound revealed gallstones in the gallbladder with mildly dilated common bile duct with attenuation of the bile duct suggestive of gallstones in the bile duct. Therefore, GI consulta tion was requested. Past Medical History: Nonsignificant except for 3 pregnancies and births, and a possible knee surger y. Medications: At home none. Allergies: NKDA. Social History: She is , 3 children. No tobacco. No alcohol. Family History: Father of myocardial infarction at the age of 53. Mother is alive and well. Review of Systems: The patient has right upper quadrant midepigastric pain with nausea, vomiting. Otherwise no fevers, chills, night sweats, change in bowel habits, diarrhea, constipation, melena, hematochezia, _, coffee-ground emesis, hematuria, dysuria, polydipsia, chest pain, shortness of breath, seizure, sy ncope. Physical Examination: Vital Signs: The patient is 5 feet, 280 pounds, BMI of 32 kg/m2. Temperature 97.9 degrees Fahrenhei t, pulse 67, respirations 18, blood pressure 114/76, O2 saturation 100%. General: She is a well-nourished, well-developed female, lying in bed, in no acute distress currentl y. HEENT: Normocephalic, atraumatic. Anicteric. Pupils equal, round, and reactive to light. Extraocu lar movements are intact. Oropharynx is clear. Neck: Supple. No masses. Respirations: Clear to auscultation bilaterally. Cardiac: Regular rate and rhythm. No gallops or rubs. Abdomen: Positive bowel sounds hypoactive. Soft, nondistended. Some tenderness in the right upper quadrant area. No peritoneal or Carrington sign. No guarding. No rebound. Extremities: No clubbing, cyanosis, or edema. 2+ pulses. Neuro: Alert and oriented x3. Grossly nonfocal. 5/5 motor. Sensation intact to light touch. Laboratory Data: The patient has a white count of 7.4, hemoglobin 11.1 down from 12.3 yesterday, hem atocrit 34, MCV of 86, platelet count 229, polys of 69%, lymphocytes 24% monocytes 5%, eosinophils 1% . PT which we ordered of 12.2, INR of 1.11, PTT of 31.5. Sodium 136, potassium 3.6, chloride 114, b icarb 24, BUN of 5, creatinine of 0.6, glucose 103, calcium 8.0, total bilirubin 0.5 down from 1.5 ye sterday, AST of 181 down from 639 yesterday, ALT of 212 down from 342 yesterday, alkaline phosphatase of 95 down from 117, total protein 6.5, albumin 3.9 down from 3.6 yesterday. Lipase yesterday was 1 25, normal. UA showed trace blood, urine test otherwise negative. Serology, COVID-19 test ing was negative. Ultrasound of abdomen revealed gallstones in gallbladder, otherwise negative. CT of abdomen and pelvis revealed common bile duct at the upper limit of normal 8 mm, attenuation of the common bile duct suggestive of choledocholithiasis and stones in the bile duct. Impression: 1.Possible choledocholithiasis with CT scan showing attenuation in the common bile duct suggestive o f choledocholithiasis with mildly dilated common bile duct, right upper quadrant pain, nausea, vomiti ng. No fevers, chills. Ultrasound revealed gallstones in gallbladder, otherwise negative. AST and ALT of 639/342, now down to 181/272, alkaline phosphatase 117 to 95, total bilirubin 1.5 to 0.5, lipa se 125 cholelithiasis with cholecystitis. 2.No significant past medical history. Recommendations: 1.Keep the patient n.p.o. 2.Check PT, PTT which was done. 3.Monitor labs. 4.ERCP. 5.Continue antiemetics. 6.Surgery is following on this case for anticipated possible laparoscopic cholecystectomy. DESI/KANDY Voice ID: [id number] Report ID: [id number]
[2022-02-02] MEDS ORDERED: PROMETHAZINE INJ 25 MG/ML AMP IV PRN (22:53)
[2022-02-03 08:57] LABS: Absolute Lymphocytes (CBC) 1.4 K/uL (0.7-4.9); Hematocrit 36.9 % (36.0-45.0); Lymphocytes % 15.8 % (15.3-44.8); RBC Red Blood Cell Count 4.26 M/uL (3.86-4.86)
[2022-02-03] MEDS: D5 0.9 NS 1,000 ML IV SCH ×3 (09:17→21:25)
[2022-02-03] MEDS: FAMOTIDINE 20 MG/2 ML VIAL IV SCH ×2 (09:18→21:24)
[2022-02-03 09:32] LABS: ALT/SGPT 148 U/L (12-78); AST/SGOT 63 U/L (15-37); BUN Blood Urea Nitrogen 4 mg/dL (7-18); Bicarbonate 23 mmol/L (21-32); Bilirubin Direct 0.2 mg/dL (0-0.2); Bilirubin Total 0.4 mg/dL (0.2-1.0); Glucose Level 94 mg/dL (74-106); Magnesium 2.3 mg/dL (1.8-2.4); Phosphorus 2.5 mg/dL (2.5-4.9); Potassium 3.2 mmol/L (3.5-5.1); Protein, Total 7.1 g/dL (6.4-8.2); Sodium Level 140 mmol/L (136-145)
[2022-02-03] MEDS ORDERED: CEFOXITIN SODIUM 1 GM/VIAL ONE (09:50)
[2022-02-03] MEDS ORDERED: Ringers Lactate 1,000 ML IV ONE (09:50)
[2022-02-03 09:58] LABS: Alkaline Phosphatase 91 U/L (45-117); Lipase 2468 U/L (73-393)
[2022-02-03 10:00] LABS: Amylase 463 U/L (25-115)
[2022-02-03] MEDS ORDERED: propofoL 200 MG/20 ML VIAL IV ONE (11:33)
[2022-02-03] MEDS ORDERED: LIDOCAINE 1% MPF 5 ML VIAL ONE (11:34)
[2022-02-03] MEDS ORDERED: ROCURONIUM 50 MG/5 ML VIAL IV ONE (11:34)
[2022-02-03] MEDS ORDERED: MIDAZOLAM HCL 2 MG/2 ML INJ ONE (11:34)
[2022-02-03] MEDS ORDERED: FENTANYL CITR 100 MCG/2 ML ONE ×2 (11:34→12:27)
[2022-02-03] MEDS ORDERED: NS 0.9% VIAL 10 ML ONE (11:42)
[2022-02-03] MEDS ORDERED: KETOROLAC 30 MG/ML INJ ONE (12:21)
[2022-02-03] MEDS ORDERED: dexAMETHasone 10 MG/ML VIAL ONE (12:21)
[2022-02-03] MEDS ORDERED: ONDANSETRON 4 MG/2 ML VIAL ONE (12:27)
[2022-02-03] MEDS ORDERED: GLYCOPYRROLATE 0.2 MG/ML SYR ONE ×2 (12:36→12:45)
[2022-02-03] MEDS ORDERED: NEOSTIGMINE 1 MG/ML -5 ML ONE (12:38)
--- NOTE | 2022-02-03 12:45 | P.BOP ---
Preoperative diagnosis: Acute cholecystitis, symptomatic cholelithiasis, choledocholithiasis, ERCP Postoperative diagnosis: same Primary procedure: Laparoscopic cholecystectomy Machine Tool Dresser: LUKAS HORTON (REGISTERED VETERINARY TECHNICIAN) Estimated blood loss: <10cc Specimen: gb Findings: as above Anesthesia: General Complications: None Transferred to: Recovery Room Condition: Good
[2022-02-03] MEDS ORDERED: MORPHINE 2 MG/ML SYR IV PRN (13:06)
--- NOTE | 2022-02-03 13:12 | P.PN ---
Subjective Date of Service: 02/03/22 Chief Complaint: Abdominal pain Subjective: No new changes, No C/O voiced (Still epigastric area pain) Physical Examination - Vital Signs Temperature: 98.9 F Blood Pressure: 114/85 Pulse: 74 Respirations: 16 Pulse Ox (%): 100 Assessment And Plan - Current Problems (Diagnosis) (1) Choledocholithiasis Current Visit: Yes Status: Acute Physician Review: Patient Assessed, Agree with Above Assessment and Plan Physician Review Additional Text: CT scan of the abdomen IMPRESSION: Biliary tree appears mildly prominent and there are finding suggestive of choledocholithiasis. Gallbladder is not dilated. Norman do not appear thickened or edematous on CT criteria. Separately reported ultrasound identified gallstones. Nonspecific congestion of the central mesenteric fat with a few small nonspecific mesenteric lymph nodes. Concurrent enteritis is possible. Involuting left ovarian cyst. 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 ERCP/endoscopy 2-4 mm stone in the CBD, plastic stent placed in the biliary system, stone unable to be removed due to patient developing tachycardia. Plan to leave stent in for 2 to 3 weeks and repeat ERCP after Laparoscopic cholecystectomy01/09 7 - Physical Exam General: Alert, In no apparent distress, Oriented x3 HEENT: Atraumatic, Normocephalic, PERRLA Neck: 2+ carotid pulse no bruit, JVD not distended Respiratory: Clear to auscultation bilaterally, Normal air movement Cardiovascular: No edema, Regular rate/rhythm, Normal S1 S2 Gastrointestinal: Normal bowel sounds, Soft and benign, Non-distended, Tenderness (epigastric) Musculoskeletal: No clubbing, No swelling Neurological: Normal gait, Normal speech, Normal strength at 5/5 x4 extr Impression Acute choledocholithiasis Biliary duct stone Plan -Continue pain regimen Follow postcholecystectomy today Continue gentle IV fluid Start gentle p.o. intake with clear liquid after cholecystectomy today Monitor LFTs Plan for discharge in a.m. if tolerating p.o. well and improved pain IV Zofran as tolerated needed Subcutaneous heparin for DVT prophylaxis Possible hospital stay for less than 48 hours 02/02/22 11:15 02/03/22 13:10
[2022-02-03] MEDS: CEFOXITIN 1 GM in NA CHLORIDE 0.9% 50 ML IVPB SCH (17:04)
--- NOTE | 2022-02-03 17:09 | PN ---
Date of Progress Note: 02/03/2022 Diagnoses: Acute cholecystitis, symptomatic cholelithiasis, choledocholithiasis status post ERCP and stent placement. Subjective: This is the case of a 41-year-old patient, who comes to us with the above diagnoses. Th e patient underwent ERCP yesterday, received a stent, but they could not remove the stone. They want to go ahead and do the laparoscopic cholecystectomy and then when the stent will be removed in the f uture, she will go and have it once again evaluated by Dr. Tyler for possible stone removal. LFTs c sharon down to normal. The patient feels better. He still wants to do the surgery during this admissio n. So, once again the benefits, alternatives, and risks of laparoscopic, possible open cholecystecto my fully explained which include, but not limited to infection, bleeding, damage to adjacent structur es, anesthesia complication, choledocholithiasis, bile leak, pancreatitis, NM, and . She also u nderstands this may not relieve any symptoms. She might need more one than surgical intervention. W e will proceed with the OR case. МАРИЯ/KANDY Voice ID: [id number] Report ID: [id number]
[2022-02-03] MEDS: HYDROCODONE/APAP 5/325 MG TAB PO PRN ×2 (17:10→21:38)
--- NOTE | 2022-02-03 17:58 | P.PN ---
Subjective Date of Service: 02/03/22 Chief Complaint: RUQ/HANNAH pain, elevated liver chemistries, choledocholithiasis, cholecystiti Subjective: Improving (S/p lap jordy today.) Review of Systems 10-point ROS is otherwise unremarkable Gastrointestinal: Nausea, Abdominal Pain Physical Examination - Vital Signs Temperature: 98.5 F Blood Pressure: 115/84 Pulse: 87 Respirations: 16 Pulse Ox (%): 100 - Physical Exam General: Alert, In no apparent distress, Oriented x3, Cooperative HEENT: Atraumatic, Normocephalic, PERRLA, EOMI Neck: Supple Respiratory: Normal air movement Cardiovascular: Normal pulses Gastrointestinal: No masses, No rebound, Tenderness Neurological: Normal speech, Normal strength at 5/5 x4 extr Assessment And Plan - Current Problems (Diagnosis) (1) Cholecystitis Current Visit: Yes Status: Acute (2) Cholelithiasis Current Visit: Yes Status: Acute (3) Abnormal liver enzymes Current Visit: Yes Status: Acute (4) Choledocholithiasis Current Visit: Yes Status: Acute - Plan REC: 1) ERCP with stent removal in 3-4 weeks 2) GI follow-up after #1 Physician Review: Patient Assessed, Agree with Above Assessment and Plan
--- NOTE | 2022-02-03 23:54 | OP ---
Date of Procedure: 02/03/2022 Surgeon: Rsuty Pereira MD Rn Heart: Natalee Gandhi. Preoperative Diagnosis: Acute cholecystitis, symptomatic cholelithiasis, choledocholithiasis, status post endoscopic retrograde cholangiopancreatography. Postoperative Diagnosis: Acute cholecystitis, symptomatic cholelithiasis, choledocholithiasis, statu s post endoscopic retrograde cholangiopancreatography. Procedure: Laparoscopic cholecystectomy. Specimen: Gallbladder. Estimated Blood Loss: Less than 10 cc. Finding: Acute cholecystitis and symptomatic cholelithiasis. Anesthesia: General plus local. Complications: None. Condition: Stable. Indication: This is the case of a 41-year-old patient, who come initially with cholecystitis, choled ocholithiasis, symptomatic cholelithiasis, had an ERCP done yesterday, even though they were able to put a stand, they were not able to remove the stone, but they established a flow. LFTs came normal. She was referred to us once again for laparoscopic possible open cholecystectomy. The patient knows that postoperatively, whenever the GI believe it is safe, they are going to proceed with an ERCP aga in to remove the stent in a safe time. She wants surgery done before discharge, so we offered laparo scopic possible open cholecystectomy with benefits, alternatives, and risks including, but not limite d to, infection, bleeding, damage to adjacent structures, anesthesia complication, choledocholithiasi s, bile leak, pancreatitis, ME, and . She also understands this may not relieve the symptoms. She might need more than one surgical intervention. She understood, signed a consent. Description Of Procedure: The patient was brought to the operating room and placed in supine positio n. Anesthesia was done without complication. Abdominal area was prepped and draped in the usual chele rile fashion. Marcaine 0.5% was injected for local anesthetic followed by sharp incision of the skin in the infraumbilical region. Incision was carried down to fascia, which was opened under direct vi meme. Peritoneum was encountered, opened under direct vision. Vicryl #1 placed inside the fascia. Analia trocar was carefully introduced. Pneumoperitoneum was obtained. I placed 3 more trocars, 5 m m each one of them in the epigastric area. At that moment, I proceeded to put a grasper in the fundu s of the gallbladder, another grasper in the infundibulum. We retracted the gallbladder in the infer olateral fashion exposing the triangle of Calot and obtaining critical view. Cystic duct and cystic artery were clearly isolated free circumferentially and a connection between those and the gallbladde r was clearly identified. A small little branch of the cystic artery also was also identified. Hepa tic arteries and common bile duct were protected at all times. We proceeded to ligate those by using at least 3 clips proximal, 1 clip distal, ligation in middle. No bile leak, no bleeding. The gallb ladder was removed from liver using Bovie cauterizer and removed from abdominal cavity using EndoCatc h through the umbilical incision. The area was inspected once again, no bile leak, no bleeding. At that moment, I proceeded to remove the trocars under direct vision. Deflated pneumoperitoneum, close d the fascia with #1 Vicryl, irrigated subcutaneous tissue, closed with 3-0 chromic and skin in a sub cuticular fashion with 3-0 chromic and Steri-Strips on top. Sponge count and instrument count were c orrect. The patient tolerated the procedure well. The patient was sent to Recovery in stable condit ion. МАРИЯ/KANDY Voice ID: [id number] Report ID: [id number]
[2022-02-04] MEDS: CEFOXITIN 1 GM in NA CHLORIDE 0.9% 50 ML IVPB SCH ×3 (00:21→11:32)
[2022-02-04] MEDS: HYDROCODONE/APAP 5/325 MG TAB PO PRN ×2 (04:49→11:46)
[2022-02-04 04:51] LABS: ALT/SGPT 108 U/L (12-78); AST/SGOT 52 U/L (15-37); Albumin 2.7 g/dL (3.4-5.0); Alkaline Phosphatase 74 U/L (45-117); Amylase 143 U/L (25-115); BUN Blood Urea Nitrogen 5 mg/dL (7-18); Bicarbonate 23 mmol/L (21-32); Bilirubin Total 0.3 mg/dL (0.2-1.0); Glucose Level 123 mg/dL (74-106); Lipase 312 U/L (73-393); Potassium 3.4 mmol/L (3.5-5.1); Protein, Total 6.2 g/dL (6.4-8.2); Sodium Level 142 mmol/L (136-145)
[2022-02-04] MEDS: D5 0.9 NS 1,000 ML IV SCH (05:59)
[2022-02-04] MEDS: FAMOTIDINE 20 MG/2 ML VIAL IV SCH (09:14)
[2022-02-04 11:50] VITALS: BP 127/78; TEMP 98
--- NOTE | 2022-02-04 12:34 | P.DS ---
Admission Date: 02/02/22 Discharge Date: 02/04/22 Disposition: ROUTINE DISCHARGE Discharge Condition: FAIR Reason for Admission: RUQ/HANNAH pain, elevated liver chemistries, choledocholithiasis, cholecystiti - Problems (1) Choledocholithiasis Current Visit: Yes Status: Acute Brief History of Present Illness: 41-year-old -Cypriot female with no past medical history presented for sudden onset abdominal pain located in the epigastric area rated at 6 out of 10 radiating to the mid back. Pain onset 6 in the last 3 days associated with nausea and 2 episodes of vomiting. She denies any associated diarrhea fever or chills. On presentation in the ED due to persistent pain she was noted on abdominal ultrasound to have multiple gallstones. CT of the abdomen shows gallstones with mild intra and extrahepatic biliary prominence. There was no evidence of acute cholecystitis. She has been admitted for choledocholithiasis Hospital Course: Hospital course Patient was admitted for choledocholithiasis. She continued to have persistent pain symptoms. She was evaluated by GI and underwent ERCP with plastic stent placement after inability to remove stone due to patient discomfort. Follow-up ERCP in 2 weeks recommended by GI. She underwent laparoscopic cholecystectomy by Dr. Pereira which was uneventful. Patient pain has significantly improved post cholecystectomy. She is tolerating p.o. well now. She will be discharged home today to continue regular diet. She will follow-up with GI in 1 to 2 weeks Significant imaging studies CT scan of the abdomen IMPRESSION: Biliary tree appears mildly prominent and there are finding suggestive of choledocholithiasis. Gallbladder is not dilated. Norman do not appear thickened or edematous on CT criteria. Separately reported ultrasound identified gallstones. Nonspecific congestion of the central mesenteric fat with a few small nonspecific mesenteric lymph nodes. Concurrent enteritis is possible. Involuting left ovarian cyst. 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 ERCP/endoscopy 2-4 mm stone in the CBD, plastic stent placed in the biliary system, stone unable to be removed due to patient developing tachycardia. Plan to leave stent in for 2 to 3 weeks and repeat ERCP after Laparoscopic cholecystectomy01/09 7 - Physical Exam General: Alert, In no apparent distress, Oriented x3 HEENT: Atraumatic, Normocephalic, PERRLA Neck: 2+ carotid pulse no bruit, JVD not distended Respiratory: Clear to auscultation bilaterally, Normal air movement Cardiovascular: No edema, Regular rate/rhythm, Normal S1 S2 Gastrointestinal: Normal bowel sounds, Soft and benign, Non-distended, Tenderness (epigastric) Musculoskeletal: No clubbing, No swelling Neurological: Normal gait, Normal speech, Normal strength at 5/5 x4 extr Vital Signs/Physical Exam: Temp Pulse Resp BP Pulse Ox 98.0 F 55 14 127/78 100 02/04/22 11:49 02/04/22 11:49 02/04/22 11:49 02/04/22 11:49 02/04/22 11:49 Laboratory Data at Discharge: WBC 8.6 K/uL (4.3-10.9) D 02/03/22 08:35 Hgb 12.0 g/dL (12.0-15.0) 02/03/22 08:35 Hct 36.9 % (36.0-45.0) 02/03/22 08:35 Plt Count 246 K/uL (152-406) 02/03/22 08:35 PT 12.2 SECONDS (9.5-12.5) 02/02/22 03:02 INR 1.11 02/02/22 03:02 APTT 31.5 SECONDS (24.3-36.9) 02/02/22 03:02 Sodium 142 mmol/L (136-145) 02/04/22 03:11 Potassium 3.4 mmol/L (3.5-5.1) L 02/04/22 03:11 BUN 5 mg/dL (7-18) L 02/04/22 03:11 Creatinine 0.58 mg/dL (0.55-1.3) 02/04/22 03:11 Glucose 123 mg/dL (74-106) H 02/04/22 03:11 Phosphorus 2.5 mg/dL (2.5-4.9) 02/03/22 08:35 Magnesium 2.3 mg/dL (1.8-2.4) 02/03/22 08:35 Total Bilirubin 0.3 mg/dL (0.2-1.0) 02/04/22 03:11 AST 52 U/L (15-37) H 02/04/22 03:11 ALT 108 U/L (12-78) H 02/04/22 03:11 Alkaline Phosphatase 74 U/L (45-117) 02/04/22 03:11 Amylase 143 U/L (25-115) H D 02/04/22 03:11 Lipase 312 U/L (73-393) 02/04/22 03:11 Home Medications: Acetaminophen [Tylenol] 650 mg PO Q6H PRN #30 tablet 02/04/22 Famotidine [Pepcid] 20 mg PO BID #60 tablet 02/04/22 New Medications: Famotidine [Pepcid] 20 mg PO BID #60 tablet Acetaminophen [Tylenol] 650 mg PO Q6H PRN #30 tablet PRN Reason: Pain Scale 2-4 (Mild) Diet: Regular Activity: avoid heavy lifting for 1 week Followup: Rusty Pereira MD [ACTIVE - CAN ADMIT] - NONE,NONE [Primary Care Provider] - Frankie Tyler MD [ASSOCIATE-ACTIVE - CAN ADMIT] - (call for follow up apointment: possible stent removal in 3-4 weeks.) Time spent managing pt's care (in minutes): 35
--- NOTE | 2022-02-04 12:47 | P.PN ---
Subjective Date of Service: 02/04/22 Chief Complaint: RUQ/HANNAH pain, elevated liver chemistries, choledocholithiasis, cholecystiti Subjective: Improving (Feels much better today. Tolerating p.o. diet.) Review of Systems 10-point ROS is otherwise unremarkable Gastrointestinal: Abdominal Pain (minimal) Physical Examination - Vital Signs Temperature: 98.0 F Blood Pressure: 127/78 Pulse: 55 Respirations: 14 Pulse Ox (%): 100 - Physical Exam General: Alert, In no apparent distress, Oriented x3, Cooperative HEENT: Atraumatic, Normocephalic, PERRLA, EOMI Neck: Supple Respiratory: Normal air movement Cardiovascular: Normal pulses Gastrointestinal: Tenderness (mild post-op) Neurological: Normal speech, Normal strength at 5/5 x4 extr Assessment And Plan - Current Problems (Diagnosis) (1) Cholecystitis Current Visit: Yes Status: Acute (2) Cholelithiasis Current Visit: Yes Status: Acute (3) Abnormal liver enzymes Current Visit: Yes Status: Acute (4) Choledocholithiasis Current Visit: Yes Status: Acute - Plan REC: 1) ERCP with stent removal in 3-4 weeks 2) GI follow-up after #1 Physician Review: Patient Assessed, Agree with Above Assessment and Plan
[2022-02-04] MEDS ORDERED: FAMOTIDINE 20 MG TAB PO SCH (21:00)
--- NOTE | 2022-02-06 00:28 | CON ---
Date of Consultation: 02/02/2022 Reason For Consultation: Abdominal pain with cholecystitis, cholelithiasis and possible choledocholi thiasis. History Of Present Illness: This is a 41-year-old female without significant past m edical history, presented with sudden onset right upper quadrant midepigastric pain, 6/10, radiating to mid back, pain associated with nausea and 2 episodes of vomiting. She presented to the emergency room. CT with ultrasound revealed gallstones in the gallbladder with mildly dilated common bile duct with attenuation of the bile duct suggestive of gallstones in the bile duct. Therefore, GI consulta tion was requested. Past Medical History: Nonsignificant except for 3 pregnancies and births, and a possible knee surger y. Medications: At home none. Allergies: NKDA. Social History: She is , 3 children. No tobacco. No alcohol. Family History: Father of myocardial infarction at the age of 53. Mother is alive and well. Review of Systems: The patient has right upper quadrant midepigastric pain with nausea, vomiting. Otherwise no fevers, chills, night sweats, change in bowel habits, diarrhea, constipation, melena, hematochezia, hematemes is, coffee-ground emesis, hematuria, dysuria, polydipsia, chest pain, shortness of breath, seizure, s yncope. Physical Examination: Vital Signs: The patient is 5 feet, 280 pounds, BMI of 32 kg/m2. Temperature 97.9 degrees Fahrenhei t, pulse 67, respirations 18, blood pressure 114/76, O2 saturation 100%. General: She is a well-nourished, well-developed female, lying in bed, in no acute distress currentl y. HEENT: Normocephalic, atraumatic. Anicteric. Pupils equal, round, and reactive to light. Extraocu lar movements are intact. Oropharynx is clear. Neck: Supple. No masses. Respirations: Clear to auscultation bilaterally. Cardiac: Regular rate and rhythm. No gallops or rubs. Abdomen: Positive bowel sounds hypoactive. Soft, nondistended. Some tenderness in the right upper quadrant area. No peritoneal or Carrington sign. No guarding. No rebound. Extremities: No clubbing, cyanosis, or edema. 2+ pulses. Neuro: Alert and oriented x3. Grossly nonfocal. 5/5 motor. Sensation intact to light touch. Laboratory Data: The patient has a white count of 7.4, hemoglobin 11.1 down from 12.3 yesterday, hem atocrit 34, MCV of 86, platelet count 229, polys of 69%, lymphocytes 24% monocytes 5%, eosinophils 1% . PT which we ordered of 12.2, INR of 1.11, PTT of 31.5. Sodium 136, potassium 3.6, chloride 114, b icarb 24, BUN of 5, creatinine of 0.6, glucose 103, calcium 8.0, total bilirubin 0.5 down from 1.5 ye sterday, AST of 181 down from 639 yesterday, ALT of 212 down from 342 yesterday, alkaline phosphatase of 95 down from 117, total protein 6.5, albumin 3.9 down from 3.6 yesterday. Lipase yesterday was 1 25, normal. UA showed trace blood, urine test otherwise negative. Serology, COVID-19 test ing was negative. Ultrasound of abdomen revealed gallstones in gallbladder, otherwise negative. CT of abdomen and pelvis revealed common bile duct at the upper limit of normal 8 mm, attenuation of the common bile duct suggestive of choledocholithiasis and stones in the bile duct. Impression: 1.Possible choledocholithiasis with CT scan showing attenuation in the common bile duct suggestive o f choledocholithiasis with mildly dilated common bile duct, right upper quadrant pain, nausea, vomiti ng. No fevers, chills. Ultrasound revealed gallstones in gallbladder, otherwise negative. AST and ALT of 639/342, now down to 181/272, alkaline phosphatase 117 to 95, total bilirubin 1.5 to 0.5, ____ cholelithiasis with cholecystitis. 2.No significant past medical history. Recommendations: 1.Keep the patient n.p.o. 2.Check PT, PTT which was done. 3.Monitor labs. 4.ERCP. 5.Continue pain meds and antiemetics. 6.Surgery is following on this case for anticipated possible laparoscopic cholecystectomy. DESI/KANDY Voice ID: [id number] Report ID: [id number]
== END 2022-02-04 14:38 | disposition home or self-care (01) | DRG 418 ==
LOC: ER 05:13 → ERHOLD 13:00 → 4TH 16:44 → OBSVTOIN 02-02 14:41
PROVIDERS: ADMIT Internal Medicine; ATTEND Internal Medicine
PROC: 0F798DZ Dilation of Common Bile Duct with Intraluminal Device, Via Natural or Artificial Opening Endoscopic (ICD-10-PCS; 2022-02-02)
PROC: 0FT44ZZ Resection of Gallbladder, Percutaneous Endoscopic Approach (ICD-10-PCS; principal; 2022-02-03 10:45)
DX: K80.42 Calculus of bile duct with acute cholecystitis without obstruction (principal); I97.791 Other intraoperative cardiac functional disturbances during other surgery; R00.0 Tachycardia, unspecified; R94.5 Abnormal results of liver function studies; E66.9 Obesity, unspecified; Z68.32 Body mass index [BMI] 32.0-32.9, adult; Z20.822 Contact with and (suspected) exposure to COVID-19
CPT/HCPCS: 36415; 74177; 76705; 80048; 80053; 80076; 81003; 81025; 82150; 83690; 83735; 84100; 85025; 85610; 85730; 88304; 96361; 96365; 96375; 99284; C2625; G0378; J0694; J1100; J1580; J1610; J2250; J2270; J2405; J2543; J2550; J2704; J2710; J3010; J3490; J7030; J7042; J7120; Q9967; U0003